=== PATIENT | male | born 1985 | race Asian ===

== ENCOUNTER 2023-12-12 18:46 | Emergency (ER) | payer SELFPAY ==
[2023-12-12 18:46] VITALS: BMI 36.2
[2023-12-12 19:14] VITALS: BP 155/114
[2023-12-12 19:43] LABS: % Basophils 0.1 % (0-2); % Eosinophils 0.3 % (0-6); % Immature Granulocytes 0.3 % (0-0.5); % Lymphocytes 20.8 % (20.5-51.1); % Monocytes 8.3 % (1.7-9.3); % Neutrophils 70.2 % (42.2-75.2); Absolute Lymphocytes 2.5 10^3/uL (1.2-3.4); Absolute Neutrophils 8.4 10^3/uL (1.4-6.5); Hematocrit 44.5 % (39.0-52.0); Hemoglobin 15.5 g/dL (13.0-18.0); Mean Corp Hgb Conc. 34.8 g/dL (33.0-37.0); Mean Corpuscular Hgb 26.6 pg (27.0-31.0); Mean Corpuscular Volume 76.5 fL (80.0-94.0); Mean Platelet Volume 9.2 fL (7.4-10.4); Nucleated Red Blood Cells % 0 % (-); Platelet Count 269 10^3/uL (130-400); Red Blood Cell Count 5.82 10^6/uL (4.70-6.10); Red Cell Dist. Width 12.9 % (11.5-14.5)
[2023-12-12 19:57] LABS: ALT (SGPT) 25 U/L (0-50); AST (SGOT) 23 U/L (17-59); Alkaline Phosphatase 105 U/L (38-126); Blood Urea Nitrogen 11 mg/dl (9-20); Calcium 9.1 mg/dl (8.4-10.2); Carbon Dioxide 24 mmol/L (22-30); Chloride 106 mmol/L (98-107); Glucose 121 mg/dl (70-99); Potassium 4.2 mmol/L (3.5-5.1); Sodium 134 mmol/L (135-145); Total Bilirubin 0.4 mg/dl (0.2-1.3); Total Protein 7.1 g/dl (6.3-8.2); eGFR > 60.00
[2023-12-12 21:38] VITALS: BP 154/92
[2023-12-12 22:00] VITALS: BP 142/93
[2023-12-12 23:00] VITALS: BP 144/88
[2023-12-12] MEDS: LOPRESSOR 50 MG PO (23:13)
[2023-12-12] MEDS: ZESTRIL 5 MG PO (23:13)
--- NOTE | 2023-12-12 23:46 | ED.GENMED ---
History of Present Illness
General
Chief Complaint: Blood Pressure Problem
Source: patient
Exam Limitations: none
Time Seen by Provider: 12/12/23 22:13
Nursing documentation reviewed up to this point in time: agreed with
Travel History
Have you had any contact with someone who has COVID-19?: No
Do you have any symptoms of coronavirus? Fever > 100 degrees, chills, cough, shortness of breath, sore throat, loss of taste or smell, muscle aches, or headache?: No
History of Present Illness
History of Present Illness:
Patient is a 38-year-old male with a history of hypertension who is taking metoprolol 50 mg XL twice a day and presents to the emergency department after being told his blood pressure was elevated and he needed to go to the emergency department.
Patient denies headache, visual or speech difficulties. Patient denies focal weakness or ataxia. Patient denies chest pain, palpitations or shortness of breath. Patient denies any GI or symptoms. Patient denies any extremity pain or edema.
Patient states he has been compliant with his medications. Patient denies any weight changes, hair loss or skin changes
Past History
Past History
ED Past Medical History: HTN
ED Past Surgical History: None
Social History
Tobacco: Non-smoker
Review of Systems
Review of Systems
All Other Systems: ROS reviewed and negative except as documented in HPI and ROS
Constitutional: Reports no symptoms
EENT: Reports no symptoms
Respiratory: Reports no symptoms
Cardiac: Reports no symptoms
ABD/GI: Reports no symptoms
: Reports no symptoms
Musculoskeletal: Reports no symptoms
Skin: Reports no symptoms
Neurological: Reports no symptoms
Hematologic/Lymphatic: Reports no symptoms
Phy Exam
Physical Exam
Physical Exam:
Physical Exam
General: No apparent distress, alert and appropriate, well nourished, well hydrated
HENT: Normocephalic, supple with no lymphadenopathy, no thyromegaly
Eyes: Clear sclera, conjuctiva without injection
Heart: Regular rhythm and rate. No S3, S4. No murmur. No NVD, bruit
Lungs: No respiratory distress, no stridor, lung sounds clear and equal bilaterally
Abdomen: Soft, nontender, no organomegaly, no CVA tenderness, BS good
Neuro: Alert and oriented x 3, CN II - XII intact, no motor focality, no cerebellar dysfunction
Skin: no rash
Psychiatric: well kept. interactive and cooperative
Extremities: No edema, cyanosis, tenderness, Good and equal peripheral pulses.
Course
Orders/Labs/Results
Orders:
Orders
12/12/23 19:20
EKG [Electrocardiogram (*1)] Urgent
Reason for Study: Tachycardia
12/12/23 19:21
EKG- Treatment ONCE
12/12/23 19:32
CMP [Comprehensive Metabolic Panel] Urgent
Complete Blood Count/With Diff Urgent
12/12/23 22:31
Lisinopril [Zestril] 5 mg PO NOW STA
Metoprolol [Lopressor] 50 mg PO NOW STA
12/12/23 22:32
Electrocardiogram (*1) Urgent
Reason for Study: Hypertension, Benign
EKG- Treatment ONCE
Abnormal Lab Results
12/12/23
19:32
WBC 12.0 H 10^3/uL
(4.8-10.8)
MCV 76.5 L fL
(80.0-94.0)
MCH 26.6 L pg
(27.0-31.0)
Absolute Neuts (auto) 8.4 H 10^3/uL
(1.4-6.5)
Absolute Monos (auto) 1.0 H 10^3/uL
(0.1-0.6)
Sodium 134 L mmol/L
(135-145)
Creatinine 0.6 L mg/dL
(0.7-1.3)
Glucose 121 H mg/dl
(70-99)
12/12/23 19:32
12/12/23 19:32
Vital Signs
Initial and Last Documented VS:
Initial Vital Signs
Temp Pulse Resp BP Pulse Ox
98.7 F 127 18 155/114 98
12/12/23 19:14 12/12/23 19:14 12/12/23 19:14 12/12/23 19:14 12/12/23 19:14
Last Documented Vital Signs
Temp Pulse Resp BP Pulse Ox
98.7 F 103 34 144/88 96
12/12/23 19:14 12/12/23 23:30 12/12/23 23:30 12/12/23 23:13 12/12/23 23:30
*Radiology
Radiology exam reviewed: other
*Pulse Oximetry
Patient hypoxic: no
*EKG
Interpreted by ED Provider?: Yes
EKG Intrepretation Date: 12/12/23
EKG Intrepretation Time: 23:53
Interpretation: abnormal
Comparison EKG: changes noted
Heart Rate: 104
Rate: tachycardiac
Rhythm: sinus
[place]: normal axis
Interval: normal interval
QRS Pattern: normal QRS
Ischemia: non-specific ST changes (Unchanged from previous)
*[employer] Interpretation
Rate: tachycardiac
Interpretation: abnormal
Heart Rate: 106
Rhythm: sinus
*Critical Care Note
Total Time (30-74mins, 75-104mins- exclusive of procedures): Not Applicable
Update Note
Update Note:
Patient is taking metoprolol XL 50 mg twice a day. Patient states he is compliant although his heart rate is elevated. Will place the patient on lisinopril with the metoprolol. Patient will be discharged to follow-up with his family doctor.
Patient's EKG is similar to his previous and the abnormalities from the previous are due to lead placement.
ED Attending Note
-
Portions of this chart may have been created with voice recognition software.� Occasional wrong word or��sound alike� substitutions may have occurred due to the inherent limitations of voice recognition software.
Discharge Plan
Departure
Patient Disposition: Home (Routine Discharge)
Date of Disposition: 12/12/23
Time of Disposition: 23:47
Patient with high blood pressure during this ER visit?: Yes
Condition: Good
Covid-19: Not Applicable
Discharge Problem:
Hypertension
Instructions: High Blood Pressure (DC), BLOOD PRESSURE
Prescriptions:
New
lisinopril-hydrochlorothiazide 10-12.5 mg tablet
1 tab PO DAILY Qty: 30 0RF
No Action
metoprolol succinate [Toprol XL] 50 mg tablet extended release 24 hr
50 mg PO BID Qty: 60 0RF
Referrals:
UNKNOWN - PT DOES,NOT KNOW [Family Provider] -
Activity Restrictions/Additional Instructions:
Continue your metoprolol as prescribed. Start the new medication. Is important that you follow-up with your physician in the next 5 to 7 days.
Interventions
Interventions:
*Risk Screen - Suicide Last Done: 12/12/23 19:14
*General Assessment Last Done: 12/12/23 19:14
*Neglect/Abuse Screening Last Done: 12/12/23 19:14
ED- Cardiac Assessment Last Done: 12/12/23 22:02
ED- Neurological Assessment Last Done: 12/12/23 22:02
ED- Pulmonary Assessment Last Done: 12/12/23 22:02
[2023-12-13] VITALS: BP 127/74
== END 2023-12-13 00:34 | disposition home or self-care (01) ==
LOC: EMR 18:46
PROVIDERS: Student in an Organized Health Care Education/Training Program; EMERGENCY PHYSICIAN Emergency Medicine
DX: I10 Essential (primary) hypertension (principal)
CPT/HCPCS: 99284; 80053; 85025; 93005